=== PATIENT | female | born 1950 | race Caucasian/White ===

== ENCOUNTER → 2017-10-08 | Outpatient (CLI) | payer MEDICARE, OTHER ==
[~2017-10-08] MED LIST: ASCO100019 PO; ASPI325T17 PO; ATOR20TA9 PO; FENTANYL PF 100 MCG/2ML ONE; MIDAZOLAM 1 MG/ML, 2ML ONE; MULT-658 PO
[2017-10-08 11:18] LABS: BASOPHILS # (AUTO) 0.03 x10^3/uL (0-0.1); BASOPHILS % (AUTO) 0 % (0-1); EOSINOPHILS # (AUTO) 0.11 x10^3/uL (0-0.4); EOSINOPHILS % (AUTO) 1 % (1-7); LYMPHOCYTES # (AUTO) 2.52 x10^3/uL (1-3.4); LYMPHOCYTES % (AUTO) 26 % (22-44); MD NO; MEAN CORPUSCULAR HEMOGLOBIN 32.4 pg (27.0-34.8); MEAN CORPUSCULAR HGB CONC 34.5 g/dL (32.4-35.8); MEAN CORPUSCULAR VOLUME 93.9 fL (80-100); MEAN PLATELET VOLUME 7.4 fL (7.4-10.4); MONOCYTES # (AUTO) 0.53 x10^3/uL (0.2-0.8); MONOCYTES % (AUTO) 5 % (2-9); NEUTROPHILS # (AUTO) 6.67 x10^3/uL (1.8-6.8); NEUTROPHILS % (AUTO) 68 % (42-75); PLATELET COUNT 311 x10^3/uL (130-400); RED BLOOD COUNT 4.69 x10^6/uL (3.82-5.3); RED CELL DISTRIBUTION WIDTH 13.7 % (9.6-15.2)
[2017-10-08 11:28] LABS: INTERNATIONAL NORMALIZED RATIO 1.01 (0.93-1.1); PROTHROMBIN TIME 10.4 Seconds (9.6-11.5)
[2017-10-08 11:58] LABS: CHLORIDE 109 mmol/L (98-107)
[2017-10-08 12:06] LABS: ALANINE AMINOTRANSFERASE 44 U/L (12-78); ALKALINE PHOSPHATASE 119 U/L (45-117); BILIRUBIN,TOTAL 0.4 mg/dL (0.2-1.0); CALCIUM 9.5 mg/dL (8.5-10.1); CREATININE 0.67 mg/dL (0.55-1.02); TOTAL PROTEIN 7.7 g/dL (6.4-8.2)
[2017-10-08 13:04] LABS: ANION GAP 8 mmol/L (5-15)
== END | disposition home or self-care (01) ==
LOC: STAR 10:12
PROVIDERS: ATTEND Nurse Practitioner Family
DX: Z01.818 Encounter for other preprocedural examination (principal); R79.1 Abnormal coagulation profile
CPT/HCPCS: 36415; 71046; 80053; 85025; 85610; 85730; 93005

== ENCOUNTER 2017-10-13 05:41 | Day surgery (SDC) | payer MEDICARE, OTHER ==
[~2017-10-13] VITALS: Ht 157.5 cm; Wt 64.0 kg
[~2017-10-13 05:41] MED LIST changes: -FENTANYL PF 100 MCG/2ML ONE; -MIDAZOLAM 1 MG/ML, 2ML ONE
[2017-10-13] MEDS ORDERED: LACTATED RINGERS 1,000 ML IV SCH (06:05)
[2017-10-13] MEDS ORDERED: BUPIVACAINE/PF-EPI 0.25% 1:200K ONE (07:00)
[2017-10-13] MEDS ORDERED: ACETAMINOPHEN 500 MG TABLET PO ONE (07:30)
[2017-10-13] MEDS ORDERED: SCOPOLAMINE PATCH, 1.5MG PATCH.TD72 TD ONE (07:30)
[2017-10-13] MEDS ORDERED: GABAPENTIN 300 MG CAPSULE PO ONE (07:30)
[2017-10-13] MEDS ORDERED: KETOROLAC 30 MG/1 ML IV PRN (08:00)
[2017-10-13] MEDS ORDERED: METOCLOPRAMIDE 5 MG/ML, 2ML IV PRN (08:00)
[2017-10-13] MEDS ORDERED: HYDROmorphone 1 MG/ML, 1ML IV PRN (08:00)
[2017-10-13] MEDS ORDERED: MEPERIDINE/PF 25MG/0.5ML IVPush PRN (08:00)
[2017-10-13] MEDS ORDERED: OXYcodone 5 MG/5 ML ORAL.SOL UDC PO PRN (08:00)
[2017-10-13] MEDS ORDERED: hydrALAzine 20 MG/ML, 1ML IV PRN (08:00)
[2017-10-13] MEDS ORDERED: PROMETHAZINE 25 MG/ML, 1ML IV PRN (08:00)
[2017-10-13] MEDS ORDERED: LABETALOL 5MG/ML, 20ML IV PRN (08:00)
[2017-10-13] MEDS ORDERED: ALBUTEROL SULFATE 2.5 MG/3 ML NPPB PRN (08:00)
[2017-10-13] MEDS ORDERED: FENTANYL PF 100 MCG/2ML IV PRN (08:00)
[2017-10-13] MEDS ORDERED: ONDANSETRON 2MG/ML, 2ML IVPush PRN (08:00)
[2017-10-13] MEDS ORDERED: KETOROLAC 30 MG/1 ML ONE (08:40)
[2017-10-13] MEDS ORDERED: KETOROLAC 30 MG/1 ML IVPush ONE (09:00)
[2017-10-13] MEDS ORDERED: KETOROLAC 30 MG/1 ML IVPush SCH (09:00)
== END 2017-10-13 10:20 | disposition home or self-care (01) ==
LOC: OUT 05:41
PROVIDERS: ATTEND Specialist
DX: D06.1 Carcinoma in situ of exocervix (principal); E78.5 Hyperlipidemia, unspecified; Z98.890 Other specified postprocedural states; Z79.899 Other long term (current) drug therapy; Z87.891 Personal history of nicotine dependence; Z86.73 Personal history of transient ischemic attack (TIA), and cerebral infarction without residual deficits
CPT/HCPCS: 57522; 88305; 88307; 88342; J1885; J2250; J3010; J7120; G0461

== ENCOUNTER 2018-03-30 06:07 | Day surgery (SDC) | payer MEDICARE, OTHER ==
[~2018-03-30] VITALS: Ht 157.5 cm; Wt 63.7 kg
[~2018-03-30 06:07] MED LIST changes: +ATOR20TA37 PO; -ATOR20TA9 PO
[2018-03-30] MEDS ORDERED: LACTATED RINGERS 1,000 ML IV SCH (06:47)
[2018-03-30] MEDS ORDERED: LIDOCAINE-MPF 1%, 2ML INFIL ONE (07:00)
[2018-03-30 07:16] VITALS: BP 153/82
[2018-03-30 07:24] LABS: BASOPHILS # (AUTO) 0.09 x10^3/uL (0-0.1); BASOPHILS % (AUTO) 1 % (0-1); EOSINOPHILS # (AUTO) 0.15 x10^3/uL (0-0.4); EOSINOPHILS % (AUTO) 1 % (1-7); LYMPHOCYTES # (AUTO) 1.78 x10^3/uL (1-3.4); LYMPHOCYTES % (AUTO) 17 % (22-44); MD NO; MEAN CORPUSCULAR HEMOGLOBIN 31.6 pg (27.0-34.8); MEAN CORPUSCULAR HGB CONC 33.8 g/dL (32.4-35.8); MEAN CORPUSCULAR VOLUME 93.8 fL (80-100); MEAN PLATELET VOLUME 7.3 fL (7.4-10.4); MONOCYTES # (AUTO) 0.69 x10^3/uL (0.2-0.8); MONOCYTES % (AUTO) 7 % (2-9); NEUTROPHILS # (AUTO) 7.58 x10^3/uL (1.8-6.8); NEUTROPHILS % (AUTO) 74 % (42-75); PLATELET COUNT 326 x10^3/uL (130-400); RED BLOOD COUNT 4.66 x10^6/uL (3.82-5.3); RED CELL DISTRIBUTION WIDTH 13.6 % (9.6-15.2)
[2018-03-30 07:42] LABS: ALANINE AMINOTRANSFERASE 31 U/L (12-78); ALBUMIN 3.9 g/dL (3.4-5.0); ANION GAP 7 mmol/L (5-15); CALCIUM 9.1 mg/dL (8.5-10.1); CHLORIDE 111 mmol/L (98-107)
[2018-03-30 07:45] LABS: ALKALINE PHOSPHATASE 110 U/L (45-117); BILIRUBIN,TOTAL 0.3 mg/dL (0.2-1.0); CREATININE 0.62 mg/dL (0.55-1.02); TOTAL PROTEIN 7.6 g/dL (6.4-8.2)
[2018-03-30] MEDS ORDERED: FENTANYL PF 250 MCG/5ML ONE (07:45)
[2018-03-30] MEDS ORDERED: MIDAZOLAM 1 MG/ML, 2ML ONE (07:45)
[2018-03-30 08:16] LABS: PROTHROMBIN TIME 10.6 Seconds (9.6-11.5)
[2018-03-30] MEDS ORDERED: OXAZEPAM 10 MG CAPSULE ONE (08:53)
[2018-03-30] MEDS ORDERED: PROPOFOL 10 MG/ML, 20ML ONE (08:53)
[2018-03-30] MEDS ORDERED: KETOROLAC 30 MG/1 ML ONE (08:53)
[2018-03-30] MEDS ORDERED: ONDANSETRON 2MG/ML, 2ML ONE (08:53)
[2018-03-30] MEDS ORDERED: ROCURONIUM 10 MG/ML,10ML ONE (08:53)
[2018-03-30] MEDS ORDERED: SUCCINYLCHOLINE 20 MG/ML, 10ML ONE (08:53)
[2018-03-30] MEDS ORDERED: KETOROLAC 30 MG/1 ML IV PRN (09:30)
[2018-03-30] MEDS ORDERED: MEPERIDINE/PF 25MG/0.5ML IVPush PRN (09:30)
[2018-03-30] MEDS ORDERED: LABETALOL 5MG/ML, 20ML IV PRN (09:30)
[2018-03-30] MEDS ORDERED: hydrALAzine 20 MG/ML, 1ML IV PRN (09:30)
[2018-03-30] MEDS ORDERED: FENTANYL PF 100 MCG/2ML IV PRN (09:30)
[2018-03-30] MEDS ORDERED: ALBUTEROL SULFATE 2.5 MG/3 ML NPPB PRN (09:30)
[2018-03-30] MEDS ORDERED: OXYcodone 5 MG/5 ML ORAL.SOL UDC PO PRN (09:30)
[2018-03-30] MEDS ORDERED: ONDANSETRON 2MG/ML, 2ML IVPush PRN (09:30)
[2018-03-30] MEDS ORDERED: HYDROmorphone 1 MG/ML, 1ML IV PRN (09:30)
[2018-03-30] MEDS ORDERED: METOCLOPRAMIDE 5 MG/ML, 2ML IV PRN (09:30)
[2018-03-30] MEDS ORDERED: PROMETHAZINE 25 MG/ML, 1ML IV PRN (09:30)
== END 2018-03-30 10:50 | disposition home or self-care (01) ==
LOC: OUT 06:07
PROVIDERS: ATTEND Specialist
DX: D06.0 Carcinoma in situ of endocervix (principal); E78.5 Hyperlipidemia, unspecified; F17.200 Nicotine dependence, unspecified, uncomplicated; Z98.890 Other specified postprocedural states; Z79.82 Long term (current) use of aspirin; Z86.718 Personal history of other venous thrombosis and embolism; Z79.01 Long term (current) use of anticoagulants
CPT/HCPCS: 36415; 57522; 80053; 85025; 85610; 85730; 88305; 88307; 93005; J0330; J1885; J2250; J2405; J2704; J3010; J7120; 88342

== ENCOUNTER → 2018-05-04 | Outpatient (CLI) | payer MEDICARE, OTHER | END | disposition home or self-care (01) | LOC: STAR 10:17 | PROVIDERS: ATTEND Specialist | DX: Z02.9 Encounter for administrative examinations, unspecified (principal) ==

== ENCOUNTER 2018-05-11 06:55 | Day surgery (SDC) | payer MEDICARE, OTHER ==
[~2018-05-11] VITALS: Ht 157.5 cm; Wt 63.3 kg
[2018-05-11] MEDS ORDERED: LACTATED RINGERS 1,000 ML IV SCH (07:14)
[2018-05-11] MEDS ORDERED: SCOPOLAMINE PATCH, 1.5MG PATCH.TD72 TD ONE (07:30)
[2018-05-11] MEDS ORDERED: GABAPENTIN 300 MG CAPSULE PO ONE (07:30)
[2018-05-11] MEDS ORDERED: DIAZEPAM 5 MG TABLET PO ONE (07:30)
[2018-05-11] MEDS ORDERED: ACETAMINOPHEN 500 MG TABLET PO ONE (07:30)
[2018-05-11 07:52] VITALS: BP 147/87
[2018-05-11] MEDS ORDERED: FENTANYL PF 250 MCG/5ML ONE (11:01)
[2018-05-11] MEDS ORDERED: MIDAZOLAM 1 MG/ML, 2ML ONE (11:01)
[2018-05-11] MEDS ORDERED: ROCURONIUM 10MG/ML,5ML ONE (11:06)
[2018-05-11] MEDS ORDERED: PROPOFOL 10 MG/ML, 20ML ONE (11:06)
[2018-05-11] MEDS ORDERED: CEFAZOLIN 1,000 MG ONE (11:12)
[2018-05-11] MEDS ORDERED: GLYCOPYRROLATE 0.2MG/1ML, 5ML ONE (11:12)
[2018-05-11] MEDS ORDERED: NEOSTIGMINE 1 MG/ML, 10ML ONE (11:12)
[2018-05-11] MEDS ORDERED: DEXAMETHASONE 4 MG/ML, 5ML ONE (11:12)
[2018-05-11] MEDS ORDERED: BUPIVACAINE/PF 0.25% ONE (11:56)
[2018-05-11] MEDS ORDERED: EPINEPHRINE 1 MG/ML, 1ML ONE (11:56)
[2018-05-11] MEDS ORDERED: ONDANSETRON 2MG/ML, 2ML ONE (11:58)
[2018-05-11] MEDS ORDERED: KETOROLAC 30 MG/1 ML ONE (11:58)
[2018-05-11] MEDS ORDERED: OXYcodone 5 MG/5 ML ORAL.SOL UDC PO PRN (12:00)
[2018-05-11] MEDS ORDERED: ALBUTEROL SULFATE 2.5 MG/3 ML NPPB PRN (12:00)
[2018-05-11] MEDS ORDERED: HYDROmorphone 2 MG/ML, 1ML IVPush PRN (12:00)
[2018-05-11] MEDS ORDERED: MIDAZOLAM 1 MG/ML, 2ML IV PRN (12:00)
[2018-05-11] MEDS ORDERED: DIAZEPAM 5 MG/ML, 2ML IVPush PRN (12:00)
[2018-05-11] MEDS ORDERED: PROMETHAZINE 25 MG/ML, 1ML IV PRN (12:00)
[2018-05-11] MEDS ORDERED: LABETALOL 5MG/ML, 20ML IV PRN (12:00)
[2018-05-11] MEDS ORDERED: PROMETHAZINE 12.5 MG SUPP PR PRN (12:00)
[2018-05-11] MEDS ORDERED: MEPERIDINE/PF 25MG/0.5ML IVPush PRN (12:00)
[2018-05-11] MEDS ORDERED: hydrALAzine 20 MG/ML, 1ML IV PRN (12:00)
[2018-05-11] MEDS ORDERED: ONDANSETRON ODT 8 MG PO PRN (12:00)
[2018-05-11] MEDS ORDERED: EPHEDRINE 50 MG/ML, 1ML IVPush PRN (12:00)
[2018-05-11] MEDS ORDERED: ONDANSETRON 2MG/ML, 2ML IV PRN (12:00)
[2018-05-11] MEDS ORDERED: MORPHINE SULFATE 4 MG/ML, 1ML IVPush PRN (12:00)
[2018-05-11] MEDS ORDERED: OXYcodone 5 MG/5 ML ORAL.SOL UDC ONE (12:45)
[2018-05-11] MEDS ORDERED: FENTANYL PF 100 MCG/2ML ONE (12:45)
[2018-05-11] MEDS: FENTANYL PF 100 MCG/2ML IV PRN ×2 (12:48→13:01)
== END 2018-05-11 16:15 | disposition home or self-care (01) ==
LOC: OUT 06:55
PROVIDERS: ATTEND Specialist
DX: D06.0 Carcinoma in situ of endocervix (principal); E78.5 Hyperlipidemia, unspecified; Z79.82 Long term (current) use of aspirin; Z98.890 Other specified postprocedural states; Z87.891 Personal history of nicotine dependence
CPT/HCPCS: 36415; 58552; 74018; 86850; 86900; 86923; 88307; J0171; J0690; J1100; J1885; J2250; J2405; J2704; J2710; J3010; J3490; J7120